=== PATIENT | male | born 1965 | race Caucasian/White ===

== ENCOUNTER 2016-12-07 17:31 | Emergency (ER) | payer OTHER ==
[2016-12-07 17:38] VITALS: RESP 16; TEMP 98.6
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
[2016-12-07 18:41] VITALS: BP 145/94; PULSE 91; O2SAT 93
== END 2016-12-07 18:40 | disposition home or self-care (01) ==
DX: S70.352A Superficial foreign body, left thigh, initial encounter (principal); W45.8XXA Other foreign body or object entering through skin, initial encounter